=== PATIENT | male | born 1955 | race Caucasian/White ===

== ENCOUNTER 2018-08-05 09:20 | Emergency (ER) | payer MEDICARE, MEDICAID ==
[~2018-08-05] VITALS: Ht 182.9 cm; Wt 81.8 kg
[2018-08-05 09:21] VITALS: BP 164/96
[2018-08-05] MEDS ORDERED: AMLO-512 PO (09:25)
== END 2018-08-05 10:33 | disposition home or self-care (01) ==
LOC: EMS 09:20
DX: F10.239 Alcohol dependence with withdrawal, unspecified (principal); I10 Essential (primary) hypertension; Z71.41 Alcohol abuse counseling and surveillance of alcoholic; Y90.9 Presence of alcohol in blood, level not specified